=== PATIENT | male | born 1970 | race Caucasian/White ===

== ENCOUNTER 2019-10-10 | Emergency (ER) | payer SELFPAY ==
[2019-10-10] MEDS ORDERED: ANTIVERT PO (21:32)
[2019-10-10] MEDS ORDERED: PREDNISONE50 MG PO (21:32)
== END 2019-10-10 21:40 | disposition home or self-care (01) | DRG 149 ==
DX: R42 Dizziness and giddiness (principal); H93.12 Tinnitus, left ear